=== PATIENT | male | born 1940 | race Caucasian/White ===

== ENCOUNTER 2019-05-29 15:40 | Inpatient (IN) | payer MEDICARE, OTHER ==
[~2019-05-29] VITALS: Ht 177.8 cm; Wt 115.3 kg
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
[2019-05-29 16:43] LABS: BILIRUBIN,URINE NEGATIVE (NEGATIVE); CLARITY,URINE CLEAR; COLOR,URINE YELLOW; GLUCOSE, URINE (UA) NEGATIVE (NEGATIVE); KETONES,URINE NEGATIVE (NEGATIVE); LEUKOCYTE ESTERASE ,URINE NEGATIVE (NEGATIVE); NITRITE,URINE NEGATIVE (NEGATIVE); PROTEIN,URINE NEGATIVE (NEGATIVE); RBC,URINE 0-2 /HPF; UROBILINOGEN,URINE 0.2 MG/DL (NORMAL)
[2019-05-29 16:44] LABS: BACTERIA,URINE NEGATIVE /HPF
--- NOTE | 2019-05-29 16:52 | Diagnostic Imaging Report ---
INDICATION: Multiple falls, swelling of the lower extremities. COMPARISON: None available. TECHNIQUE: Single view of the chest was obtained. FINDINGS: Asymmetric elevation of the right hemidiaphragm is present. Patchy ill-defined opacities are present in the right lung base. No pleural effusion or pneumothorax. The heart is enlarged. Left pectoral transvenous pacemaker has electrodes and leads in appropriate position. The pulse generator is unremarkable. No displaced rib fracture. IMPRESSION: 1. Right basilar linear opacities favor subsegmental atelectasis. In the appropriate setting, aspiration or infection could be present. 2. No features of congestive heart failure. Dictated by: Dictated on workstation # [id number]
[2019-05-29 17:05] LABS: HEMATOCRIT 40 % (35-52); HEMOGLOBIN 12.8 G/DL (11.5-16.0); MEAN CORPUSCULAR HEMOGLOBIN 28 PG (25-34); MEAN CORPUSCULAR HGB CONC 32 G/DL (32-36); MEAN CORPUSCULAR VOLUME 88 FL (80-99); MEAN PLATELET VOLUME 8.9 FL (7.4-10.4); PLATELET COUNT 338 10^3/uL (130-400); WHITE BLOOD COUNT 7.6 10^3/uL (4.3-11.0)
[2019-05-29 17:06] LABS: BASOPHILS # (AUTO) 0.1 10^3/uL (0.0-0.1); BASOPHILS % (AUTO) 1 % (0-10); EOSINOPHILS # (AUTO) 0.3 10^3/uL (0.0-0.3); EOSINOPHILS % (AUTO) 4 % (0-10); LYMPHOCYTES % (AUTO) 14 % (12-44); MONOCYTES # (AUTO) 0.7 X 10^3 (0.0-1.0); MONOCYTES % (AUTO) 9 % (0-12); NEUTROPHILS # (AUTO) 5.5 X 10^3 (1.8-7.8); NEUTROPHILS % (AUTO) 72 % (42-75); RED CELL DISTRIBUTION WIDTH 13.6 % (10.0-14.5)
[2019-05-29 17:31] LABS: BUN/CREATININE RATIO 11; CALCIUM 8.9 MG/DL (8.5-10.1); CARBON DIOXIDE 25 MMOL/L (21-32); CHLORIDE 99 MMOL/L (98-107); CREATININE SERUM 0.99 MG/DL (0.60-1.30); GFR ESTIMATED 54; GLUCOSE 91 MG/DL (70-105); POTASSIUM 3.9 MMOL/L (3.6-5.0); SODIUM 138 MMOL/L (135-145)
[2019-05-29] MEDS ORDERED: ALPRAZolam 0.5 MG (XANAX) TAB PO ONE (17:45)
[2019-05-29] MEDS ORDERED: cefTRIAXone FOR IV USE 1,000 MG in WATER (STERILE) FOR INJECTION 10 ML IV ONE (19:15)
[2019-05-29] MEDS ORDERED: FUROSEMIDE 40 MG/4 ML INJ (LASIX) IVP ONE (19:15)
--- NOTE | 2019-05-29 19:20 | NUR ---
ems here report given
[2019-05-29 20:25] VITALS: BP 163/76
[2019-05-30 00:30] VITALS: BP 176/79
[2019-05-30 04:00] VITALS: BP 175/81
[2019-05-30 06:20] LABS: BASOPHILS % (AUTO) 1 % (0-10); EOSINOPHILS # (AUTO) 0.3 10^3/uL (0.0-0.3); EOSINOPHILS % (AUTO) 5 % (0-10); HEMATOCRIT 38 % (35-52); HEMOGLOBIN 11.9 G/DL (11.5-16.0); LYMPHOCYTES # (AUTO) 0.9 X 10^3 (1.0-4.0); LYMPHOCYTES % (AUTO) 14 % (12-44); MEAN CORPUSCULAR HEMOGLOBIN 27 PG (25-34); MEAN CORPUSCULAR HGB CONC 31 G/DL (32-36); MEAN CORPUSCULAR VOLUME 87 FL (80-99); MEAN PLATELET VOLUME 9.6 FL (7.4-10.4); MONOCYTES # (AUTO) 0.8 X 10^3 (0.0-1.0); MONOCYTES % (AUTO) 13 % (0-12); NEUTROPHILS # (AUTO) 4.6 X 10^3 (1.8-7.8); NEUTROPHILS % (AUTO) 69 % (42-75); PLATELET COUNT 297 10^3/uL (130-400); RED CELL DISTRIBUTION WIDTH 14.2 % (10.0-14.5); WHITE BLOOD COUNT 6.7 10^3/uL (4.3-11.0)
[2019-05-30 06:40] LABS: ALBUMIN 3.2 GM/DL (3.2-4.5); BILIRUBIN,TOTAL 0.4 MG/DL (0.1-1.0); CALCIUM 8.9 MG/DL (8.5-10.1); CREATININE SERUM 0.96 MG/DL (0.60-1.30); POTASSIUM 4.1 MMOL/L (3.6-5.0); TOTAL PROTEIN 6.5 GM/DL (6.4-8.2)
[2019-05-30 08:00] VITALS: BP 193/94
[2019-05-30] MEDS: FUROSEMIDE 40 MG/4 ML INJ (LASIX) IV SCH ×2 (11:02→19:42)
[2019-05-30 12:00] VITALS: BP 202/98
[2019-05-30] MEDS ORDERED: amLODIPine 5 MG (NORVASC) TAB PO NR (12:00)
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
[2019-05-30] MEDS ORDERED: ANTACID SUSP 30 ML UDC (MYLANTA) PO PRN (12:15)
[2019-05-30] MEDS ORDERED: MILK OF MAGNESIA 400 MG/5 ML 30 ML UDC PO PRN (12:15)
[2019-05-30] MEDS ORDERED: BENZONATATE 100 MG (TESSALON) CAPSULE PO PRN (12:15)
[2019-05-30] MEDS ORDERED: BISACODYL 10 MG SUPP (DULCOLAX) PR PRN (12:15)
[2019-05-30] MEDS ORDERED: ONDANSETRON 4 MG/2 ML (SDV) Z0FRAN IV PRN (12:15)
[2019-05-30] MEDS ORDERED: MELATONIN 3 MG TABLET PO PRN (12:15)
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
[2019-05-30] MEDS: ENOXAPARIN 40 MG/0.4 ML (LOVENOX) SYR SQ SCH (13:15)
--- NOTE | 2019-05-30 13:57 | Physical Therapy Evaluation ---
PT Evaluation-General Medical Diagnosis Admission Date May 29, 2019 at 19:00 Medical Diagnosis: Pain in bilateral LE Onset Date: May 29, 2019 Therapy Diagnosis Therapy Diagnosis: debility Height/Weight Height (Feet): 5 Height (Inches): 10.00 Weight (Pounds): 261 Weight (Ounces): 8.0 Precautions Precautions/Isolations: Fall Prevention, Standard Precautions Referral Physician: Dr. Krishna Reason for Referral: Evaluation/Treatment Medical History Additional Medical History (B) TKR Current History Deplorable home condition and falls Reviewed History: Yes Social History Home: Single Level Current Living Status: Alone Prior/Core FIM Prior Level of Function Therapy Code Descriptions/Definitions Functional [place] Measure: 0=Not Assessed/NA 4=Minimal Assistance 1=Total Assistance 5=Supervision or Setup 2=Maximal Assistance 6=Modified [place] 3=Moderate Assistance 7=Complete [place] Therapy Quality Codes: 6 Independent with activity with or without an assistive device 5 Patient requires set up or clean up by helper. Patient completes activity by themselves 4 Supervision or touching assist (CGA). [place] provide cues , steadying assist 3 The helper provides less than half the effort to complete the activity 2 The helper provides more than half the effort to complete the activity 1 Dependent. The helper does all the effort to complete an activity 7 Patient refused to complete or attempt activity 9 The patient did not perform the activity before the current illness or injury 88 Not attempted due to Medical conditions or safety concerns Functional Abilities and Goals: Independent: Patient completed the activities by him/herself, with or without an assistive device, with no assistance from a helper. Needed Some Help: Patient needed partial assistance from another person to complete activities. Dependent: A helper completed the activities for the patient. Unknown: Not Applicable: Bed Mobility: 6 Transfers (B,C,W/C) (FIM): 6 Gait: 6 Stairs: 6 Indoor Mobility (Ambulation): Independent Prior Devices Use: Walker PT Evaluation-Current Subjective Pt. in bed, says "I need to use my urinal!" Pt. agrees to PT after therapist encouragement. Pt/Family Goals home alone ROM/Strength ROM Upper Extremities See OT ROM Lower Extremities 75% normal ranges (B) hips, knees, ankles Strength Upper Extremities See OT Strength Lower Extremities Grossly 4-/5 Integumentary/Posture Integumentary See nursing notes Posture kyphotic Neuromuscular (Tone, Coordination, Reflexes) diminished Sensory Vision: Functional Hearing: Impaired Sensation Right Upper Extremit: Intact Sensation Left Upper Extremity: Intact Sensation Right Lower Extremit: Intact Sensation Left Lower Extremity: Intact Transfers Therapy Code Descriptions/Definitions Functional [place] Measure: 0=Not Assessed/NA 4=Minimal Assistance 1=Total Assistance 5=Supervision or Setup 2=Maximal Assistance 6=Modified [place] 3=Moderate Assistance 7=Complete [place] Transfers (B, C, W/C) (FIM): 3 Supine to/from Sit: 3 Sit to/from Stand: 4 Gait Mode of Locomotion: Walk Anticipated Mode of Locomotion: Walk Gait (FIM): 1 Distance (FIM): 1=up to 49 ft Distance: 15 ft Gait Level of Assist: 4 Gait Persons Needed: 1 Gait Assistive Device: FWW Comments/Gait Description cues needed to stay close to walker Balance Sitting Static: Good Sitting Dynamic: Fair Standing Static: Fair Standing Dynamic: Fair Assessment/Needs Pt. is a 79 y.o. male with general debility. Pt. is slow with transfers and gait, cues needed for safety. Pt. would benefit from skilled PT to improve safe mobility for return home. Rehab Potential: Fair PT Short Term Goals Short Term Goals Transfers (B,C,W/C) (FIM): 5 PT Soap Chipper Goals Halfway Goals PT Halfway Goals Time Frame: Jun 06, 2019 Transfers (B,C,W/C) (FIM): 5 Gait (FIM): 5 Gait distance (FIM): 3=150 ft Distance: 150 ft Gait Level of Assist: 5 Gait Assistive Device: FWW PT Plan Problem List Problem List: Activity Tolerance, Functional Strength, Safety, Balance, Gait, Transfer, Bed Mobility, ROM Treatment/Plan Treatment Plan: Continue Plan of Care Treatment Plan: Bed Mobility, Concurrent Therapy, Education, Functional Activity Yumiko, Functional Strength, Gait, Safety, Therapeutic Exercise, Transfers Treatment Duration: Jun 06, 2019 Frequency: 6 times per week Estimated Hrs Per Day: .5 hour per day Patient and/or Family Agrees t: Yes Time/GCodes Time In: 1020 Time Out: 1035 Total Billed Treatment Time: 15 Total Billed Treatment 1, BORIS 15' TIMOTHY VELÁZQUEZ PT May 30, 2019 13:57
[2019-05-30 16:50] VITALS: BP 116/72
[2019-05-30] MEDS: LACTOBACILLUS ACIDOPHILUS (PROBIOTIC) CAPSULE PO SCH (17:58)
[2019-05-30 20:30] VITALS: BP 139/71
[2019-05-31] VITALS (7 sets, daily range): BP systolic 157–202; BP diastolic 74–90
[2019-05-31] MEDS: NITROGLYCERIN 2% OINT 1 GM UNIT DOSE PACKET TOP PRN ×2 (01:12→16:53)
[2019-05-31 05:38] LABS: BASOPHILS % (AUTO) 1 % (0-10); EOSINOPHILS # (AUTO) 0.4 10^3/uL (0.0-0.3); EOSINOPHILS % (AUTO) 6 % (0-10); HEMATOCRIT 39 % (35-52); HEMOGLOBIN 12.4 G/DL (11.5-16.0); LYMPHOCYTES % (AUTO) 13 % (12-44); MEAN CORPUSCULAR HEMOGLOBIN 28 PG (25-34); MEAN CORPUSCULAR HGB CONC 32 G/DL (32-36); MEAN CORPUSCULAR VOLUME 87 FL (80-99); MEAN PLATELET VOLUME 9.1 FL (7.4-10.4); MONOCYTES # (AUTO) 0.9 X 10^3 (0.0-1.0); MONOCYTES % (AUTO) 12 % (0-12); NEUTROPHILS # (AUTO) 5.2 X 10^3 (1.8-7.8); NEUTROPHILS % (AUTO) 69 % (42-75); PLATELET COUNT 322 10^3/uL (130-400); RED CELL DISTRIBUTION WIDTH 14.2 % (10.0-14.5); WHITE BLOOD COUNT 7.5 10^3/uL (4.3-11.0)
[2019-05-31 06:00] LABS: CREATININE SERUM 1.03 MG/DL (0.60-1.30); POTASSIUM 3.7 MMOL/L (3.6-5.0)
[2019-05-31] MEDS: LACTOBACILLUS ACIDOPHILUS (PROBIOTIC) CAPSULE PO SCH ×3 (06:29→17:35)
[2019-05-31] MEDS: amLODIPine 5 MG (NORVASC) TAB PO SCH (09:06)
[2019-05-31] MEDS: FUROSEMIDE 40 MG/4 ML INJ (LASIX) IV SCH ×2 (09:06→20:51)
[2019-05-31] MEDS: A & D OINT 113 GM TUBE TOP SCH (09:09)
[2019-05-31] MEDS: ENOXAPARIN 40 MG/0.4 ML (LOVENOX) SYR SQ SCH (12:05)
--- NOTE | 2019-05-31 14:46 | Wound Care Assessment ---
Wound Care Assessment Date Seen by Provider: May 31, 2019 Time Seen by Provider: 14:30 Chief Complaint R calf ulcer. HPI The patient is a 79 year old male with venous insufficiency, R calf ulcer, and cellulitis. He is improved with elevation and antibiotics. Arterial evaluation ordered to determine if compression is safe. Dressings (A + D) ordered. Past Medical History: Admits Heart Disease (Hypertension) Smoking Status: Never a Smoker Recreational Drug Use: No Alcohol Use: Denies Use Review of Systems Pulmonary: No Dyspnea Cardiovascular: No: Chest Pain Exam Vital Signs Date Time Temp Pulse Resp B/P (MAP) Pulse Ox O2 Delivery O2 Flow Rate FiO2 05/31/19 12:00 98.0 63 18 179/90 (119) 95 Room Air Capillary Refill : Less Than 3 SecondsLess Than 3 Seconds General Appearance: no apparent distress Cardiovascular: regular rate, rhythm Respiratory: lungs clear Extremities: other (superficial ulceration of R calf) Results Laboratory Tests 05/31/19 05:28: White Blood Count 7.5, Red Blood Count 4.47, Hemoglobin 12.4, Hematocrit 39, Mean Corpuscular Volume 87, Mean Corpuscular Hemoglobin 28, Mean Corpuscular Hemoglobin Concent 32, Red Cell Distribution Width 14.2, Platelet Count 322, Mean Platelet Volume 9.1, Neutrophils (%) (Auto) 69, Lymphocytes (%) (Auto) 13, Monocytes (%) (Auto) 12, Eosinophils (%) (Auto) 6, Basophils (%) (Auto) 1, Neutrophils # (Auto) 5.2, Lymphocytes # (Auto) 1.0, Monocytes # (Auto) 0.9, Eosinophils # (Auto) 0.4H, Basophils # (Auto) 0.0, Sodium Level 136, Potassium Level 3.7, Chloride Level 101, Carbon Dioxide Level 25, Anion Gap 10, Blood Urea Nitrogen 14, Creatinine 1.03, Estimat Glomerular Filtration Rate 52, BUN/Creatinine Ratio 14, Glucose Level 101, Calcium Level 9.0 Assessment/Plan/Dx 1. Ulcer, R calf, partial thickness. 2. Venous insufficiency R leg. 3. Lymphedema Plan: Elevation ordered and encouraged. Arterial studies ordered. KIKI ANDREWS MD May 31, 2019 14:46
--- NOTE | 2019-05-31 15:57 | Progress Note - Hospitalist ---
Subjective HPI/CC On Admission Date Seen by Provider: May 31, 2019 Time Seen by Provider: 10:20 patient is a 79-year-old male with a past medical of hypertension who was brought to the emergency department due to weakness and falls. He is a poor historian so details of history are limited. He states that 2 weeks ago his left him and he has not been feeling well since then. He reports he has fallen twice since that time. He also has redness and swelling in his right leg that is worse than his left leg. He states this duration is also two weeks (though clinically appears like a much older issue). He otherwise has no complaints. per review of notes and from report from ER doctor he was found by the fire depart ment to be living in deplorable conditions His mattress was covered with urine and feces and reportedly there was maggot infestation in the house. Subjective/Events-last exam Pt reports feeling about the same. No complaints or concerns. Discussed with RN who spoke with his nieces who plan to be here tomorrow to discuss their uncle's situation with SW. Focused Exam Lactate Level 05/29/19 18:20: Lactic Acid Level 0.95 Objective Exam Vital Signs Vital Signs Date Time Temp Pulse Resp B/P (MAP) Pulse Ox O2 Delivery O2 Flow Rate FiO2 05/31/19 12:00 98.0 63 18 179/90 (119) 95 Room Air Capillary Refill : Less Than 3 SecondsLess Than 3 Seconds General Appearance: No Apparent Distress, WD/WN, Obese Neck: No Thyromegaly Respiratory: Lungs Clear, No Accessory Muscle Use, No Respiratory Distress Cardiovascular: Regular Rate, Rhythm, No JVD, No Murmur Gastrointestinal: Normal Bowel Sounds, Non Tender, Soft Back: Normal Inspection Extremity: Swelling, Other (RLE erythematous though improving with venous stasis dermatitis and flaking skin) Skin: Erythema, Other (bilateral venous statis dermatitsi R>L) Results/Procedures Lab Laboratory Tests 05/31/19 05:28 Patient resulted labs reviewed. Imaging: Reviewed Imaging Report Assessment/Plan Assessment and Plan Assess & Plan/Chief Complaint assessment Right lower extremity cellulitis Failure to thrive Hypertensive urgency elevated BNP plan: Will continue on Rocephin Await cultures echo pending new client banking services clerk consulted pt/ot IV lasix for diuresis Start amlodipine Diagnosis/Problems Diagnosis/Problems (1) Cellulitis of lower extremity Status: Acute Qualifiers: Laterality: right Qualified Codes: L03.115 - Cellulitis of right lower limb (2) Failure to thrive Status: Acute Qualifiers: Failure to thrive age range: in adult Qualified Codes: R62.7 - Adult failure to thrive (3) Lower extremity edema Status: Acute (4) Poor social situation Status: Acute (5) Venous stasis dermatitis Status: Acute Qualifiers: Laterality: bilateral Qualified Codes: I87.2 - Venous insufficiency (chronic) (peripheral) (6) Essential hypertension Status: Acute Clinical Quality Measures DVT/VTE Risk/Contraindication: Risk Factor Score Per Nursin RFS Level Per Nursing on Admit: 4+=Very High NAOMIE YOUSSEF MD May 31, 2019 15:57
[2019-05-31] MEDS: ACETAMINOPHEN 325 MG TABLET PO PRN (20:51)
[2019-06-01] VITALS: BP 171/78
[2019-06-01] MEDS ORDERED: cefTRIAXone 1,000 MG IV (ROCEPHIN) VIAL ONE (00:47)
[2019-06-01 04:00] VITALS: BP 175/90
[2019-06-01] MEDS: LACTOBACILLUS ACIDOPHILUS (PROBIOTIC) CAPSULE PO SCH ×3 (06:11→16:13)
[2019-06-01 08:00] VITALS: BP 156/81
[2019-06-01] MEDS: FUROSEMIDE 40 MG/4 ML INJ (LASIX) IV SCH ×2 (08:48→20:36)
[2019-06-01] MEDS: amLODIPine 5 MG (NORVASC) TAB PO SCH (08:48)
[2019-06-01] MEDS: A & D OINT 113 GM TUBE TOP SCH ×2 (08:53→10:22)
--- NOTE | 2019-06-01 09:12 | ST Cognitive Linguistic Eval ---
Speech Evaluation-General Medical Diagnosis Pain in bilateral LE Onset Date: May 29, 2019 Therapy Diagnosis Therapy Diagnosis: Cognitve-communication Precautions Precautions/Isolations: Contact Isolation, Fall Prevention, Standard Precautions, Contact/Enteric Isolation Medical History Reviewed History: Yes Social History Current Living Status: Alone Speech PLF-Current Status Prior Level of Function The patient lived alone and was independent for his daily needs. Subjective The patient was pleasant and cooperative with the cognitive evaluation. Language Eval: Auditory Comprehends Simple Yes/No Ques: Functional Indent/Objects Multiple [place]: Functional Ident/Pics in Multiple [place]: Functional Follows 1-Step Commands: Functional Follows Complex Directions: Functional Follows General Conversations: Functional Language Eval: Verbal Language Completes Spontaneous Greeting: Functional Produces Auto, Serial Info: Functional Imitates Simple Words/Phrases: Functional Word Finding: Functional Requests Basic Needs: Functional States Basic Personal Info: Functional Expresses Complex Ideas: Functional Objective Cognitive Domain Attention: WNL Memory: WNL Problem Solving: Functional Executive Functions: WNL Visuospatial Skills: WNL Composite Severity Rating: WNL Clock Drawing Severity Rating: WNL Objective Formal/Standardized Tests [facility] Mental Status (UMS) Results Patient scored 28/30 which is within the normal range. Oral Motor/Speech Production Within Normal Function Impression The patient is a pleasant 79 year old man who was brought to the ER with a bilateral LE. His medical status has improved. Confusion is not apparent as it was upon admit. SLUMS score is 28/30 which is within normal range. Patient does not require any skilled ST at this time. Speech-Plan Patient/Family Goals Patient/Family Goals: The patient plans on returning home upon hospital discharge. Treatment Plan Speech Therapy Treatment Plan: Discontinue ST The patient does not meet criteria for skilled ST services. Treatment Duration: Jun 01, 2019 Frequency: 1 time per week Estimated Hrs Per Day: .25 hour per day Rehab Potential: Fair Barriers to Learning: None identified at this time. Pt/Family Agrees to Plan: Yes Safety Risks/Education Teaching Recipient: Patient Teaching Methods: Discussion Response to Teaching: Verbalize Understanding Education Topics Provided: Safety within his room. Time Speech Therapy Time In: 08:15 Speech Therapy Time Out: 08:30 Total Billed Time: 15 Billed Treatment Time 1, SHORTY Bello Jun 01, 2019 09:12
--- NOTE | 2019-06-01 09:31 | NUR ---
PATIENT STATES HE IS NOT CURRENTLY TAKING ANY MEDICATIONS PRESCRIPTION OR OTC. HE STATES HE HAS TAKEN ASPIRIN IN THE PAST BUT HASN'T TAKEN IT RECENTLY.
--- NOTE | 2019-06-01 10:24 | Diagnostic Imaging Report ---
PROCEDURE: US Venous Lower Ext Mark. TECHNIQUE: Multiple real-time grayscale images were obtained over the lower extremities in various projections, bilaterally. Additional duplex Doppler and color Doppler images were also obtained. INDICATION: Pain and swelling. FINDINGS: The common femoral, femoral, popliteal veins and tibial veins demonstrate normal response to compression, augmentation and Valsalva. There are no abnormal lower extremity fluid collections or masses. IMPRESSION: No evidence of deep venous thrombosis in either lower extremity. Dictated by: Dictated on workstation # [id number]
--- NOTE | 2019-06-01 10:34 | NUR ---
PRIOR TO A.M. MEDICATIONS PULSE WAS 64 BPM AND B/P WAS 156/81.
--- NOTE | 2019-06-01 11:46 | Diagnostic Imaging Report ---
Ultrasound noninvasive extremity. Indication: Leg pain. The segmental pressures and ankle brachial indices were obtained in the routine manner. There are no prior studies available for comparison. The ankle-brachial index on the right is 1.40 and on the left 1.46 (normal 1.00 or greater). Impression: The ankle brachial indices are within normal limits. Dictated by: Dictated on workstation # [id number]
[2019-06-01 12:00] VITALS: BP 185/85
--- NOTE | 2019-06-01 12:25 | NUR ---
Initial visit: Pt did not share specific chente affiliation. States that he has two sister with whom he lost touch until a week ago when they arrived at his home and insisted he go to the hospital. Pt reflected that this was a timely intervention and expressed gratitude for his sisters. The pt has a son with whom he does not have contact. States that two years ago his son "became a 'she,"' after which time they have not spoken. The pt said he was "not excited about his choice" but in the end was not going to let it get in the way of their relationship. Even so, they have remained estranged since that time. The pt is from [facility] and expressed desire to return there, but is not making plans to do so. Presently he lives in [place].
[2019-06-01] MEDS: ENOXAPARIN 40 MG/0.4 ML (LOVENOX) SYR SQ SCH (13:00)
--- NOTE | 2019-06-01 13:12 | Physical Therapy Daily Note ---
PT Daily Note-Current Subjective Pt agreeable only to ex's this morning. States he had a conversation with dish cloth inspector earlier this morning. Pain Numeric Pain Scale: 0-No Pain Appearance Pt sitting up in chair upon arrival awake. Pt sitting up in chair with call light and bedside table within reach at end of session. Mental Status Patient Orientation: Person, Time, Eyes Open Transfers Therapy Code Descriptions/Definitions Functional [place] Measure: 0=Not Assessed/NA 4=Minimal Assistance 1=Total Assistance 5=Supervision or Setup 2=Maximal Assistance 6=Modified [place] 3=Moderate Assistance 7=Complete [place] Therapy Quality Codes: 6 Independent with activity with or without an assistive device 5 Patient requires set up or clean up by helper. Patient completes activity by themselves 4 Supervision or touching assist (CGA). [place] provide cues , steadying assist 3 The helper provides less than half the effort to complete the activity 2 The helper provides more than half the effort to complete the activity 1 Dependent. The helper does all the effort to complete an activity 7 Patient refused to complete or attempt activity 9 The patient did not perform the activity before the current illness or injury 88 Not attempted due to Medical conditions or safety concerns Exercises Seated Therapy Exercises: Ankle pumps, Long arc quads, Hip flexion, Hamstring Curls, Reaching activity, Hip abd/add Seated Reps: 20 Assessment pt only willing to perform seated ex's this am PT Short Term Goals Short Term Goals Transfers (B,C,W/C) (FIM): 5 PT Before School Babysitter Goals Before School Babysitter Goals PT Fci Goals Time Frame: Jun 06, 2019 Transfers (B,C,W/C) (FIM): 5 Gait (FIM): 5 Gait distance (FIM): 3=150 ft Distance: 150 ft Gait Level of Assist: 5 Gait Assistive Device: FWW PT Plan Treatment/Plan Treatment Plan: Continue Plan of Care Treatment Plan: Bed Mobility, Concurrent Therapy, Education, Functional Activity Yumiko, Functional Strength, Gait, Safety, Therapeutic Exercise, Transfers Treatment Duration: Jun 06, 2019 Frequency: 6 times per week Estimated Hrs Per Day: .5 hour per day Patient and/or Family Agrees t: Yes Safety Risks/Education Patient Education: Disease Process, Safety Issues Teaching Recipient: Patient Teaching Methods: Discussion Response to Teaching: Verbalize Understanding Time/GCodes Time In: 1207 Time Out: 1220 Total Billed Treatment Time: 13 Total Billed Treatment 1 visit, EX x1 unit OLY,DONALDO DITCH TENDER Jun 01, 2019 13:12
--- NOTE | 2019-06-01 14:59 | Occupational Ther Daily Note ---
OT Current Status-Daily Note Subjective Pt seen in room, up in bed, agreeable to OT. No pain mentioned. Appearance Alert, cooperative Mental Status/Objective Therapy Code Descriptions/Definitions Functional [place] Measure: 0=Not Assessed/NA 4=Minimal Assistance 1=Total Assistance 5=Supervision or Setup 2=Maximal Assistance 6=Modified [place] 3=Moderate Assistance 7=Complete [place] Other Treatment Pt education on 5 different bilat UE exercises using yellow theraband. To strengthen arms to help with transfers and ADLs. Pt completed 10-12 reps each exercises, with occasional cues to do them correctly. Pt return demo three exercises. Pt encouraged to do another set this evening. Pt left up in bed, all needs met. Education OT Patient Education: Home exercise program, Purpose of tx/functional activiti es Teaching Recipient: Patient Teaching Methods: Demonstration, Discussion Response to Teaching: Verbalize Understanding, Return Demonstration, Reinforcement Needed OT Short Term Goals Short Term Goals Time Frame: Jun 06, 2019 Eating(FIM): 6 Grooming(FIM): 5 Bathing(FIM): 4 Upper Body Dressing(FIM): 5 Lower Body Dressing(FIM): 4 Toileting(FIM): 4 Transfers (B,C,W/C) (FIM): 5 Toilet/Commode Transfer(FIM): 5 Shower Transfer(FIM): 4 Additional Short Term Goals: 1-Demonstrate ADL Tasks, 2-Verbalize Understanding, 3-ImproveStrength/Yumiko 1=Demonstrate adherence to instructed precautions during ADL tasks. 2=Patient will verbalize/demonstrate understanding of assistive devices/modifications for ADL. 3=Patient will improve strength/tolerance for activity to enable patient to perform ADL's. OT [place] Goals Detention Goals Time Frame: Jun 13, 2019 Eating (FIM): 6 Grooming(FIM): 5 Bathing(FIM): 5 Upper Body Dressing(FIM): 5 Lower Body Dressing(FIM): 5 Toileting(FIM): 5 Transfers (B,C,W/C) (FIM): 5 Toilet/Commode Transfer(FIM): 5 Shower Transfer(FIM): 5 Additional Goals: 1-Demonstrate ADL Tasks, 2-Verbalize Understanding, 3- ImproveStrength/Yumiko 1=Demonstrate adherence to instructed precautions during ADL tasks. 2=Patient will verbalize/demonstrate understanding of assistive devices/modifications for ADL. 3=Patient will improve strength/tolerance for activity to enable patient to perform ADL's. OT Education/Plan Discharge Recommendations Plan/Recommendations: Continue POC Treatment Plan/Plan of Care Patient would benefit from OT for education, treatment and training to promote independence in ADL's, mobility, safety and/or upper extremity function for ADL's. Plan of Care: ADL Retraining, Functional Mobility, UE Funct Exercise/Act Treatment Duration: Jun 13, 2019 Frequency: 5 times per week Estimated Hrs Per Day: .5 hour per day Agreement: Yes Rehab Potential: Fair Time/GCodes Start Time: 14:35 Stop Time: 14:50 Total Time Billed (hr/min): 15 Billed Treatment Time visit, 15 minutes exercise FREDERICK ESCALANTE OT Jun 01, 2019 14:59
--- NOTE | 2019-06-01 15:16 | NUR ---
CM/SS responded to consult for SS. Spoke with the niece (Carey) and she stated that she and another family member cleaned up / out the patient's home as there had been trash and feces in the home. She stated that she also worked to get his phone bill caught up and back on. She and the patient have not spoken in the last ten years or so until this past weekend. Patient reports that he had a couple of falls recently and that he had not felt as strong. He would be interested in building up some strength before returning home, possible IRF or SNF. He wanted to discuss how his and son had recently left him, within the last two months. His son is transitioning to a female, he says he was always supportive but he has not heard from his son since he moved and he does not know how to get a hold of him. His left and he believes she is him, though, he states he has not seen the paperwork. Will continue to follow.
--- NOTE | 2019-06-01 15:36 | Progress Note - Hospitalist ---
Progress Note Progress Notes/Assess & Plan Date Seen 06/01/19 Time Seen by Provider: 15:32 Assessment & Plan The patient is a 79-year-old white male sent down from the [facility] emergency room after he was brought there because of inability to perform the activities of daily living. His home was said to be in a horrible state with urine, feces, maggots being noted in the E MS reports He seems to have no real retail pharmacy manager as to why he is here. This is likely to be a social work challenge. Physical exam: Lungs are clear to auscultation. CV is regular. Lower extremities show a rather considerable erythema and crusting of the right lower extremity. There are several areas that are open and oozing. Impression: Venous stasis/cellulitis right lower extremity. 2.dementia. 3.inability to perform the activities of daily living. Focused Exam Lactate Level 05/29/19 18:20: Lactic Acid Level 0.95 SANDY SALDANA MD Jun 01, 2019 15:36
[2019-06-01] MEDS ORDERED: VANCOMYCIN INJECTION 1,000 MG in NS (IVPB) 250 ML IV SCH (15:45)
[2019-06-01] MEDS ORDERED: VANCOMYCIN INJECTION 0.1 MG in NS (IVPB) 250 ML IV SCH (15:45)
[2019-06-01] MEDS ORDERED: VANCOMYCIN 2,500 MG/NS 500 ML IVPB IV NR ×2 (15:53)
--- NOTE | 2019-06-01 16:03 | NUR ---
VANCOMYCIN PHARMACY TO DOSE: BASED ON ADJ BW 86.6 KG, SCr 1.03, EST CrCl 73.57 LOADING DOSE (BASED ON ACTUAL BW 113.8 KG) = 2,500 MG MAIN DOSE = 1,750 MG Q 12 HRS VANCOMYCIN TROUGH DUE 06/03/19 @ 04:00 IF TROUGH IS GREATER THAN 20 HOLD 06/03/19 05:00 DOSE.
[2019-06-01] MEDS: ceFAZolin INJECTION 1,000 MG in WATER (STERILE) FOR INJECTION 10 ML IV SCH (16:13)
[2019-06-01 16:50] VITALS: BP 157/74
[2019-06-01] MEDS: ACETAMINOPHEN 325 MG TABLET PO PRN (20:29)
[2019-06-01 20:50] VITALS: BP 146/83
[2019-06-02 00:32] VITALS: BP 146/83
[2019-06-02] MEDS: ceFAZolin INJECTION 1,000 MG in WATER (STERILE) FOR INJECTION 10 ML IV SCH ×3 (00:41→15:48)
[2019-06-02 04:00] VITALS: BP 180/89
[2019-06-02] MEDS: LACTOBACILLUS ACIDOPHILUS (PROBIOTIC) CAPSULE PO SCH ×3 (06:17→16:46)
[2019-06-02] MEDS: VANCOMYCIN 1,750 MG/NS 500 ML IVPB IV SCH ×4 (06:18→16:47)
[2019-06-02 08:00] VITALS: BP 149/74
[2019-06-02] MEDS: amLODIPine 5 MG (NORVASC) TAB PO SCH (08:24)
[2019-06-02] MEDS: FUROSEMIDE 40 MG/4 ML INJ (LASIX) IV SCH ×2 (08:25→21:15)
[2019-06-02] MEDS: A & D OINT 113 GM TUBE TOP SCH (08:25)
--- NOTE | 2019-06-02 10:18 | Physical Therapy Daily Note ---
PT Daily Note-Current Subjective Agrees to PT and wants to get up to the chair. Repeats questions some. Mental Status Patient Orientation: Person, Confused (slight; repeats questions), Place, Time, Situation Transfers Therapy Code Descriptions/Definitions Functional [place] Measure: 0=Not Assessed/NA 4=Minimal Assistance 1=Total Assistance 5=Supervision or Setup 2=Maximal Assistance 6=Modified [place] 3=Moderate Assistance 7=Complete [place] Therapy Quality Codes: 6 Independent with activity with or without an assistive device 5 Patient requires set up or clean up by helper. Patient completes activity by themselves 4 Supervision or touching assist (CGA). [place] provide cues , steadying assist 3 The helper provides less than half the effort to complete the activity 2 The helper provides more than half the effort to complete the activity 1 Dependent. The helper does all the effort to complete an activity 7 Patient refused to complete or attempt activity 9 The patient did not perform the activity before the current illness or injury 88 Not attempted due to Medical conditions or safety concerns Transfers (B, C, W/C) (FIM): 3 Supine to/from Sit: 3 (mod assist to transfer supine to sit with skilled cues 75% of the time for sequencing) Sit to/from Stand: 3 (mod assist withskilled cues forhand placement and sequencing. blocked left foot to keep it from sliding. ) Gait Training Gait (FIM): 2 Distance (FIM): 1=up to 49 ft Distance: 10 ft Gait Assistive Device: FWW Pt walked 10 ft with FWW slow, decreased step length and decreased step through left LE. Slightly unsteady. AFter walking, pt stood to urinate. Needed assist to hold the urinal. Treatments Bed mobiltiy, gait and up in chair post treatment with needs met. Assessment Current Status: Good Progress Progressing with mobility. Requires heavy cues for sequencing and to complete tasks. Slightly unsteady with gait. Limited knee flexion ROM left due to hx of multiple surgerie.s PT Short Term Goals Short Term Goals Transfers (B,C,W/C) (FIM): 5 PT Director Process Goals Director Process Goals PT Director Process Goals Time Frame: Jun 06, 2019 Transfers (B,C,W/C) (FIM): 5 Gait (FIM): 5 Gait distance (FIM): 3=150 ft Distance: 150 ft Gait Level of Assist: 5 Gait Assistive Device: FWW PT Plan Problem List Problem List: Activity Tolerance, Functional Strength, Safety, Balance, Gait, Transfer, Bed Mobility Treatment/Plan Treatment Plan: Continue Plan of Care Treatment Plan: Bed Mobility, Concurrent Therapy, Education, Functional Activity Yumiko, Functional Strength, Gait, Safety, Therapeutic Exercise, Transfers Treatment Duration: Jun 06, 2019 Frequency: 6 times per week Estimated Hrs Per Day: .5 hour per day Patient and/or Family Agrees t: Yes Safety Risks/Education Patient Education: Transfer Techniques, Safety Issues Teaching Recipient: Patient Teaching Methods: Demonstration, Discussion Response to Teaching: Reinforcement Needed Time/GCodes Time In: 952 Time Out: 1010 Total Billed Treatment Time: 18 Total Billed Treatment visit FA 18 JACEK BROWN PT Jun 02, 2019 10:18
[2019-06-02] MEDS: ENOXAPARIN 40 MG/0.4 ML (LOVENOX) SYR SQ SCH (12:17)
--- NOTE | 2019-06-02 12:49 | Occupational Ther Daily Note ---
OT Current Status-Daily Note Subjective Pt sitting in chair, agrees to treatment. Mental Status/Objective Therapy Code Descriptions/Definitions Functional [place] Measure: 0=Not Assessed/NA 4=Minimal Assistance 1=Total Assistance 5=Supervision or Setup 2=Maximal Assistance 6=Modified [place] 3=Moderate Assistance 7=Complete [place] Other Treatment Pt completed bilateral UE exercises to increase overall strength and activity tolerance needed for functional task completion. Pt performed 5 exercises x10 reps each focusing on shoulder and elbow movements using yellow theraband. Rest breaks between exercises. Pt able to recall three exercises from previous session, but required cues for proper exercise technique. Pt performed sit to stand x3 reps with moderate assistance and skilled cues for hand placement and safety. Pt able to take steps forward and back with walker, but requires cues for safe walker use. Pt sitting in chair with needs met after session. OT Short Term Goals Short Term Goals Time Frame: Jun 06, 2019 Eating(FIM): 6 Grooming(FIM): 5 Bathing(FIM): 4 Upper Body Dressing(FIM): 5 Lower Body Dressing(FIM): 4 Toileting(FIM): 4 Transfers (B,C,W/C) (FIM): 5 Toilet/Commode Transfer(FIM): 5 Shower Transfer(FIM): 4 Additional Short Term Goals: 1-Demonstrate ADL Tasks, 2-Verbalize Understanding, 3-ImproveStrength/Yumiko 1=Demonstrate adherence to instructed precautions during ADL tasks. 2=Patient will verbalize/demonstrate understanding of assistive devices/modifications for ADL. 3=Patient will improve strength/tolerance for activity to enable patient to perform ADL's. OT Commercial Pest Control Representative Goals Long-Term Goals Time Frame: Jun 13, 2019 Eating (FIM): 6 Grooming(FIM): 5 Bathing(FIM): 5 Upper Body Dressing(FIM): 5 Lower Body Dressing(FIM): 5 Toileting(FIM): 5 Transfers (B,C,W/C) (FIM): 5 Toilet/Commode Transfer(FIM): 5 Shower Transfer(FIM): 5 Additional Goals: 1-Demonstrate ADL Tasks, 2-Verbalize Understanding, 3- ImproveStrength/Yumiko 1=Demonstrate adherence to instructed precautions during ADL tasks. 2=Patient will verbalize/demonstrate understanding of assistive devices/modifications for ADL. 3=Patient will improve strength/tolerance for activity to enable patient to perform ADL's. OT Education/Plan Discharge Recommendations Plan/Recommendations: Continue POC Treatment Plan/Plan of Care Patient would benefit from OT for education, treatment and training to promote independence in ADL's, mobility, safety and/or upper extremity function for ADL's. Plan of Care: ADL Retraining, Functional Mobility, UE Funct Exercise/Act Treatment Duration: Jun 13, 2019 Frequency: 5 times per week Estimated Hrs Per Day: .5 hour per day Agreement: Yes Rehab Potential: Fair Time/GCodes Start Time: 10:45 Stop Time: 11:10 Total Time Billed (hr/min): 25 Billed Treatment Time 1 visit, EX(15minutes), FA(10minutes) ALIYA ZAPATA OT Jun 02, 2019 12:49
--- NOTE | 2019-06-02 14:48 | Progress Note - Hospitalist ---
Progress Note Progress Notes/Assess & Plan Date Seen 06/02/19 Time Seen by Provider: 14:44 Assessment & Plan The patient seems more cognitive today than yesterday. The nurses have been in contact with his family in [place]. They state that they have close down his [facility] residence as he has no real connections there. 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 They would prefer that he be moved back to that area and believes at least in present time he requires penitentiary. He seems to be amenable to that idea. Physical exam: Lungs are clear to auscultation. CV is regular. Abdomen is soft. The right lower extremity looks remarkably better today as compared to yesterday. The red is fading and the skin appears less crusty than previously. Impression: Venous stasis dermatitis. 2.cellulitis secondary to number 1. Plan: Continue IV antibiotics. Make arrangements for discharge with approval of family. SANDY SALDANA MD Jun 02, 2019 14:47
[2019-06-02 16:00] VITALS: BP 149/73
[2019-06-03 00:05] VITALS: BP 167/71
[2019-06-03] MEDS: ceFAZolin INJECTION 1,000 MG in WATER (STERILE) FOR INJECTION 10 ML IV SCH ×3 (01:49→17:17)
[2019-06-03] MEDS ORDERED: TROUGH ORDER-PHARMACY XX NR ×2 (04:00→16:00)
[2019-06-03] MEDS: VANCOMYCIN 1,750 MG/NS 500 ML IVPB IV SCH ×4 (05:00→19:00)
[2019-06-03] MEDS: LACTOBACILLUS ACIDOPHILUS (PROBIOTIC) CAPSULE PO SCH ×3 (06:55→17:17)
[2019-06-03 08:00] VITALS: BP 187/64
[2019-06-03] MEDS: amLODIPine 5 MG (NORVASC) TAB PO SCH (08:32)
[2019-06-03] MEDS: FUROSEMIDE 40 MG/4 ML INJ (LASIX) IV SCH ×2 (08:32→19:55)
[2019-06-03] MEDS: A & D OINT 113 GM TUBE TOP SCH (08:32)
--- NOTE | 2019-06-03 09:18 | NUR ---
CM/SS spoke with the patient and then both of his nieces by phone. Alejandrina stated that she had other family not doing well and was going to be going to [place]. Carey stated that she was available but had other commitments this week. Patient spoke of [facility] and that he had therapy somewhere there, nirodrick stated this was an outpatient therapy. They agreed on referral to [facility] and then they would maybe try to transfer to a facility closer to them at a later time. Referral sent to [facility].
--- NOTE | 2019-06-03 09:32 | Progress Note - Hospitalist ---
Subjective HPI/CC On Admission Date Seen by Provider: Jun 03, 2019 Time Seen by Provider: 09:30 patient is a 79-year-old male with a past medical of hypertension who was brought to the emergency department due to weakness and falls. He is a poor historian so details of history are limited. He states that 2 weeks ago his left him and he has not been feeling well since then. He reports he has fallen twice since that time. He also has redness and swelling in his right leg that is worse than his left leg. He states this duration is also two weeks (though clinically appears like a much older issue). He otherwise has no complaints. per review of notes and from report from ER doctor he was found by the fire depart ment to be living in deplorable conditions His mattress was covered with urine and feces and reportedly there was maggot infestation in the house. Subjective/Events-last exam Pt awaiting approval for residential placement Pt has very poor recall Overall doing much better with his leg cellulitis and he is maintained on IV antibiotics but that will be switched to PO antibiotics Patient was found in terrible conditions at home with maggots and oscarsalud De [place] is managing as his power of babbitt spinner Review of Systems General: Fatigue Musculoskeletal: leg pain Objective Exam Vital Signs Vital Signs Date Time Temp Pulse Resp B/P (MAP) Pulse Ox O2 Delivery O2 Flow Rate FiO2 06/03/19 16:25 98.1 69 20 143/66 (91) 96 Room Air Capillary Refill : Less Than 3 SecondsLess Than 3 Seconds General Appearance: No Apparent Distress, WD/WN, Chronically ill, Obese Neck: No Thyromegaly Respiratory: Lungs Clear, Normal Breath Sounds, No Accessory Muscle Use, No Respiratory Distress Cardiovascular: Regular Rate, Rhythm, No JVD, No Murmur Gastrointestinal: Normal Bowel Sounds, Non Tender, Soft Back: Normal Inspection Extremity: Swelling, Other (RLE erythematous though improving with venous stasis dermatitis and flaking skin) Skin: Erythema, Other (bilateral venous statis dermatitsi R>L) Results/Procedures Lab Laboratory Tests 06/03/19 16:03 Patient resulted labs reviewed. Imaging: Reviewed Imaging Report Assessment/Plan Assessment and Plan Assess & Plan/Chief Complaint Assessment: Right lower extremity cellulitis Failure to thrive Hypertensive urgency Elevated BNP Poor recall Plan: Abx NHP Poor prognosis Diagnosis/Problems Diagnosis/Problems (1) Cellulitis of lower extremity Status: Acute Qualifiers: Laterality: right Qualified Codes: L03.115 - Cellulitis of right lower limb (2) Venous stasis dermatitis Status: Chronic Qualifiers: Laterality: bilateral Qualified Codes: I87.2 - Venous insufficiency (chronic) (peripheral) (3) Failure to thrive Status: Acute Qualifiers: Failure to thrive age range: in adult Qualified Codes: R62.7 - Adult failure to thrive (4) Congestive heart failure Status: Acute Qualifiers: Heart failure type: unspecified Heart failure chronicity: unspecified Qualified Codes: I50.9 - Heart failure, unspecified (5) Lower extremity edema Status: Chronic (6) Poor social situation Status: Acute (7) Decubitus ulcer of buttock, stage 1 Status: Acute Qualifiers: Laterality: unspecified laterality Qualified Codes: L89.301 - Pressure ulcer of unspecified buttock, stage 1 (8) Generalized weakness Status: Acute (9) Essential hypertension Status: Chronic Clinical Quality Measures DVT/VTE Risk/Contraindication: Risk Factor Score Per Nursin RFS Level Per Nursing on Admit: 4+=Very High IONA GANNON DO Jun 03, 2019 09:32
[2019-06-03] MEDS ORDERED: AMOX-358 PO (11:10)
[2019-06-03] MEDS ORDERED: POTA10TA36 PO (11:10)
[2019-06-03] MEDS ORDERED: FURO-125 PO (11:10)
[2019-06-03] MEDS ORDERED: AMLO5TAB9 PO (11:10)
[2019-06-03] MEDS ORDERED: LACT1CAP7 PO (11:10)
--- NOTE | 2019-06-03 11:13 | Discharge Inst-Skilled Nursing ---
Discharge Inst-Skilled NF Patient Instructions Patient Problems: Cellulitis Edema Venous stasis dermatitis Goal: Return to independent living Consult/Follow Up/Orders Follow Up Appt.: [facility] in 1 week Skilled NF Admit to: [facility] [place] Certification (SNF) I certify that SNF services are required to be given on an inpatient basis because of the above named patient's need for care home care on a continuing basis for the conditions(s) for which he/she was receiving inpatient hospital services prior to his/her transfer to the SNF. Alf Facility Order: Nursing Services, Landscape Horticulture Instructor-Evaluate & Treat, Physical Therapy-Evaluate & Treat Oxygen Delivery Method: Room Air Discharge Diet: Low Sodium Diet Daily Activity as Tolerated: Yes New & Resume Previous Orders Adrianna Valles Jun 03, 2019 11:11 Pneu Vac Indicated: Yes ADRIANNA VALLES DO Jun 03, 2019 11:13
[2019-06-03] MEDS: ENOXAPARIN 40 MG/0.4 ML (LOVENOX) SYR SQ SCH (12:50)
--- NOTE | 2019-06-03 12:54 | Occupational Ther Daily Note ---
OT Current Status-Daily Note Subjective Pt sitting in chair, agrees to treatment. No reports of pain. Pt states he wants to leave soon Mental Status/Objective Therapy Code Descriptions/Definitions Functional [place] Measure: 0=Not Assessed/NA 4=Minimal Assistance 1=Total Assistance 5=Supervision or Setup 2=Maximal Assistance 6=Modified [place] 3=Moderate Assistance 7=Complete [place] ADL-Treatment Pt reports already completing ADLs this morning. Therapy Code Descriptions/Definitions Functional [place] Measure: 0=Not Assessed/NA 4=Minimal Assistance 1=Total Assistance 5=Supervision or Setup 2=Maximal Assistance 6=Modified [place] 3=Moderate Assistance 7=Complete [place] Therapy Quality Codes: 6 Independent with activity with or without an assistive device 5 Patient requires set up or clean up by helper. Patient completes activity by themselves 4 Supervision or touching assist (CGA). [place] provide cues , steadying assist 3 The helper provides less than half the effort to complete the activity 2 The helper provides more than half the effort to complete the activity 1 Dependent. The helper does all the effort to complete an activity 7 Patient refused to complete or attempt activity 9 The patient did not perform the activity before the current illness or injury 88 Not attempted due to Medical conditions or safety concerns Other Treatment Pt states he wants to "get moving" so he can go home. Requests to work on mobility. Pt performed sit to stand from chair with moderate assistance and cues for safety. Initially pt leans posteriorly when standing and requires cues for weight shifting and foot placement. Pt transferred to EOB with min assist with FWW. Performed sit to stand x5 reps with min to mod assist with bed slightly raised. Ambulated short distance to chair with min assist. Pt performed modified chair push ups x5 reps, two sets to increase strength needed for transfers. Pt requires rest breaks between activities secondary to fatigue. Pt sitting in chair with needs met after session. OT Short Term Goals Short Term Goals Time Frame: Jun 06, 2019 Eating(FIM): 6 Grooming(FIM): 5 Bathing(FIM): 4 Upper Body Dressing(FIM): 5 Lower Body Dressing(FIM): 4 Toileting(FIM): 4 Transfers (B,C,W/C) (FIM): 5 Toilet/Commode Transfer(FIM): 5 Shower Transfer(FIM): 4 Additional Short Term Goals: 1-Demonstrate ADL Tasks, 2-Verbalize Understanding, 3-ImproveStrength/Yumiko 1=Demonstrate adherence to instructed precautions during ADL tasks. 2=Patient will verbalize/demonstrate understanding of assistive devices/modifications for ADL. 3=Patient will improve strength/tolerance for activity to enable patient to perform ADL's. OT Nanny Babysitter Goals Nanny Babysitter Goals Time Frame: Jun 13, 2019 Eating (FIM): 6 Groomin Bathing(FIM): 5 Upper Body Dressing(FIM): 5 Lower Body Dressing(FIM): 5 Toileting(FIM): 5 Transfers (B,C,W/C) (FIM): 5 Toilet/Commode Transfer(FIM): 5 Shower Transfer(FIM): 5 Additional Goals: 1-Demonstrate ADL Tasks, 2-Verbalize Understanding, 3- ImproveStrength/Yumiko 1=Demonstrate adherence to instructed precautions during ADL tasks. 2=Patient will verbalize/demonstrate understanding of assistive devices/modifications for ADL. 3=Patient will improve strength/tolerance for activity to enable patient to perform ADL's. OT Education/Plan Discharge Recommendations Plan/Recommendations: Continue POC Treatment Plan/Plan of Care Patient would benefit from OT for education, treatment and training to promote independence in ADL's, mobility, safety and/or upper extremity function for ADL's. Plan of Care: ADL Retraining, Functional Mobility, UE Funct Exercise/Act Treatment Duration: Jun 13, 2019 Frequency: 5 times per week Estimated Hrs Per Day: .5 hour per day Agreement: Yes Rehab Potential: Fair Time/GCodes Start Time: 10:24 Stop Time: 10:55 Total Time Billed (hr/min): 31 Billed Treatment Time 1 visit, FAx2(31minutes) ALIYA ZAPATA OT Jun 03, 2019 12:54
--- NOTE | 2019-06-03 13:54 | Physical Therapy Daily Note ---
PT Daily Note-Current Subjective Patient in recliner pre tx, agrees to PT, has no complaints of pain. Appearance Patient in recliner post tx with nurse call, phone, tray, all needs met. Mental Status Patient Orientation: Person Transfers Therapy Code Descriptions/Definitions Functional [place] Measure: 0=Not Assessed/NA 4=Minimal Assistance 1=Total Assistance 5=Supervision or Setup 2=Maximal Assistance 6=Modified [place] 3=Moderate Assistance 7=Complete [place] Therapy Quality Codes: 6 Independent with activity with or without an assistive device 5 Patient requires set up or clean up by helper. Patient completes activity by themselves 4 Supervision or touching assist (CGA). [place] provide cues , steadying assist 3 The helper provides less than half the effort to complete the activity 2 The helper provides more than half the effort to complete the activity 1 Dependent. The helper does all the effort to complete an activity 7 Patient refused to complete or attempt activity 9 The patient did not perform the activity before the current illness or injury 88 Not attempted due to Medical conditions or safety concerns Transfers (B, C, W/C) (FIM): 3 Sit to/from Stand: 3 Bed to/from Chair: 4 Mod assist for sit to stand, patient is very retropulsive initially and slowly leans forward to get his balance. Gait Training Gait (FIM): 1 Distance: 20' Gait Level of Assist: 4 Gait Persons Needed: 1 Gait Assistive Device: FWW Patient ambulated 20' with a rolling walker with min assist, unsteady but no yoko LOB, ambulates with a slumped posture with walker too far forward, he does not respond much to cues to keep walker closer. Treatments transfers, ambulation Assessment Current Status: Fair Progress improved endurance but patient was very fatigued after ambulating just 20' PT Short Term Goals Short Term Goals Transfers (B,C,W/C) (FIM): 5 PT Longterm Goals Longterm Goals PT Slide Fasteners Inspector Goals Time Frame: Jun 06, 2019 Transfers (B,C,W/C) (FIM): 5 Gait (FIM): 5 Gait distance (FIM): 3=150 ft Distance: 150 ft Gait Level of Assist: 5 Gait Assistive Device: FWW PT Plan Problem List Problem List: Activity Tolerance, Functional Strength, Safety, Balance, Gait, Transfer, Bed Mobility, ROM Treatment/Plan Treatment Plan: Continue Plan of Care Treatment Plan: Bed Mobility, Concurrent Therapy, Education, Functional Activity Yumiko, Functional Strength, Gait, Safety, Therapeutic Exercise, Transfers Treatment Duration: Jun 06, 2019 Frequency: 6 times per week Estimated Hrs Per Day: .5 hour per day Patient and/or Family Agrees t: Yes Safety Risks/Education Patient Education: Gait Training, Transfer Techniques, Correct Positioning, Safety Issues Teaching Recipient: Patient Teaching Methods: Demonstration, Discussion Response to Teaching: Reinforcement Needed Time/GCodes Time In: 1310 Time Out: 1325 Total Billed Treatment Time: 15 Total Billed Treatment 1 visit GT 15' DESTINY JOYCE PT Jun 03, 2019 13:54
--- NOTE | 2019-06-03 15:27 | NUR ---
CM/SS spoke with [facility], the patient actually has [employer], a managed medicare. Dorothy was able to find the card and provide them and our facility with the information. This information was passed along to registration. [facility] is not in network with the insurance. Dorothy (Carey) has began the process of a medicaid application for the patient and emailed a signature page to her with the patient's signature so that she could get that submitted.
[2019-06-03 16:25] VITALS: BP 143/66
[2019-06-03 16:29] LABS: CALCIUM 9.3 MG/DL (8.5-10.1); CREATININE SERUM 1.14 MG/DL (0.60-1.30); POTASSIUM 3.5 MMOL/L (3.6-5.0)
[2019-06-03 16:37] LABS: VANCOMYCIN,TROUGH 18.1 UG/ML (10.0-20.0)
[2019-06-04] VITALS: BP 159/77
[2019-06-04] MEDS: ceFAZolin INJECTION 1,000 MG in WATER (STERILE) FOR INJECTION 10 ML IV SCH ×3 (00:19→16:44)
[2019-06-04 06:33] LABS: BASOPHILS # (AUTO) 0.1 10^3/uL (0.0-0.1); BASOPHILS % (AUTO) 1 % (0-10); EOSINOPHILS # (AUTO) 0.6 10^3/uL (0.0-0.3); EOSINOPHILS % (AUTO) 6 % (0-10); HEMATOCRIT 40 % (35-52); HEMOGLOBIN 12.8 G/DL (11.5-16.0); LYMPHOCYTES # (AUTO) 1.2 X 10^3 (1.0-4.0); LYMPHOCYTES % (AUTO) 13 % (12-44); MEAN CORPUSCULAR HEMOGLOBIN 28 PG (25-34); MEAN CORPUSCULAR HGB CONC 32 G/DL (32-36); MEAN CORPUSCULAR VOLUME 86 FL (80-99); MEAN PLATELET VOLUME 9.2 FL (7.4-10.4); MONOCYTES # (AUTO) 0.9 X 10^3 (0.0-1.0); MONOCYTES % (AUTO) 10 % (0-12); NEUTROPHILS # (AUTO) 6.1 X 10^3 (1.8-7.8); NEUTROPHILS % (AUTO) 69 % (42-75); PLATELET COUNT 318 10^3/uL (130-400); RED CELL DISTRIBUTION WIDTH 14.5 % (10.0-14.5); WHITE BLOOD COUNT 8.8 10^3/uL (4.3-11.0)
[2019-06-04 06:54] LABS: ALANINE AMINOTRANSFERASE < 6 U/L (0-55); ALBUMIN 3.3 GM/DL (3.2-4.5); ALKALINE PHOSPHATASE 94 U/L (40-136); BILIRUBIN,TOTAL 0.3 MG/DL (0.1-1.0); BUN/CREATININE RATIO 19; CALCIUM 8.7 MG/DL (8.5-10.1); CARBON DIOXIDE 24 MMOL/L (21-32); CHLORIDE 101 MMOL/L (98-107); CREATININE SERUM 1.05 MG/DL (0.60-1.30); GFR ESTIMATED 51; GLUCOSE 97 MG/DL (70-105); POTASSIUM 3.3 MMOL/L (3.6-5.0); SODIUM 136 MMOL/L (135-145); TOTAL PROTEIN 6.9 GM/DL (6.4-8.2)
[2019-06-04 08:00] VITALS: BP 155/86
[2019-06-04] MEDS: LACTOBACILLUS ACIDOPHILUS (PROBIOTIC) CAPSULE PO SCH ×3 (08:40→16:43)
[2019-06-04] MEDS: amLODIPine 5 MG (NORVASC) TAB PO SCH (08:50)
[2019-06-04] MEDS: FUROSEMIDE 40 MG/4 ML INJ (LASIX) IV SCH ×2 (08:51→21:46)
--- NOTE | 2019-06-04 10:04 | Progress Note - Hospitalist ---
Subjective HPI/CC On Admission Date Seen by Provider: Jun 04, 2019 Time Seen by Provider: 10:15 patient is a 79-year-old male with a past medical of hypertension who was brought to the emergency department due to weakness and falls. He is a poor historian so details of history are limited. He states that 2 weeks ago his left him and he has not been feeling well since then. He reports he has fallen twice since that time. He also has redness and swelling in his right leg that is worse than his left leg. He states this duration is also two weeks (though clinically appears like a much older issue). He otherwise has no complaints. per review of notes and from report from ER doctor he was found by the fire depart ment to be living in deplorable conditions His mattress was covered with urine and feces and reportedly there was maggot infestation in the house. Subjective/Events-last exam Pt sleeping in chair, soundly. Awaiting placement in a custodial. Reviewed meds and labs. No significant issues persist. Objective Exam Vital Signs Vital Signs Date Time Temp Pulse Resp B/P (MAP) Pulse Ox O2 Delivery O2 Flow Rate FiO2 06/04/19 16:50 98.7 64 20 139/65 (89) 93 Room Air Capillary Refill : Less Than 3 SecondsLess Than 3 Seconds General Appearance: No Apparent Distress, WD/WN, Chronically ill, Obese Neck: No Thyromegaly Respiratory: Lungs Clear, Normal Breath Sounds, No Accessory Muscle Use, No Respiratory Distress Cardiovascular: Regular Rate, Rhythm, No JVD, No Murmur Gastrointestinal: Normal Bowel Sounds, Non Tender, Soft Back: Normal Inspection Extremity: Swelling, Other (RLE erythematous though improving with venous stasis dermatitis and flaking skin) Skin: Erythema, Other (bilateral venous statis dermatitsi R>L) Results/Procedures Lab Laboratory Tests 06/04/19 06:05 06/04/19 06:20 Patient resulted labs reviewed. Imaging: Reviewed Imaging Report Assessment/Plan Assessment and Plan Assess & Plan/Chief Complaint Assessment: Right lower extremity cellulitis Failure to thrive Hypertensive urgency Elevated BNP Poor recall Plan: Abx NHP Poor prognosis Diagnosis/Problems Diagnosis/Problems (1) Cellulitis of lower extremity Status: Acute Qualifiers: Laterality: right Qualified Codes: L03.115 - Cellulitis of right lower limb (2) Venous stasis dermatitis Status: Chronic Qualifiers: Laterality: bilateral Qualified Codes: I87.2 - Venous insufficiency (chronic) (peripheral) (3) Failure to thrive Status: Acute Qualifiers: Failure to thrive age range: in adult Qualified Codes: R62.7 - Adult failure to thrive (4) Congestive heart failure Status: Acute Qualifiers: Heart failure type: unspecified Heart failure chronicity: unspecified Qualified Codes: I50.9 - Heart failure, unspecified (5) Lower extremity edema Status: Chronic (6) Poor social situation Status: Acute (7) Decubitus ulcer of buttock, stage 1 Status: Acute Qualifiers: Laterality: unspecified laterality Qualified Codes: L89.301 - Pressure ulcer of unspecified buttock, stage 1 (8) Generalized weakness Status: Acute (9) Essential hypertension Status: Chronic Clinical Quality Measures DVT/VTE Risk/Contraindication: Risk Factor Score Per Nursin RFS Level Per Nursing on Admit: 4+=Very High IONA GANNON DO Jun 04, 2019 10:04
--- NOTE | 2019-06-04 10:41 | Physical Therapy Daily Note ---
PT Daily Note-Current Subjective Pt. in bed. Initially agrees to Rx but then hesitant as Rx begins. Pt. retropulsive and resists wt shifting etc and plops down on chair one time Pain Location: No Pain Reported Mental Status Patient Orientation: Person, Place Transfers Therapy Code Descriptions/Definitions Functional [place] Measure: 0=Not Assessed/NA 4=Minimal Assistance 1=Total Assistance 5=Supervision or Setup 2=Maximal Assistance 6=Modified [place] 3=Moderate Assistance 7=Complete [place] Therapy Quality Codes: 6 Independent with activity with or without an assistive device 5 Patient requires set up or clean up by helper. Patient completes activity by themselves 4 Supervision or touching assist (CGA). [place] provide cues , steadying a ssist 3 The helper provides less than half the effort to complete the activity 2 The helper provides more than half the effort to complete the activity 1 Dependent. The helper does all the effort to complete an activity 7 Patient refused to complete or attempt activity 9 The patient did not perform the activity before the current illness or injury 88 Not attempted due to Medical conditions or safety concerns Transfers (B, C, W/C) (FIM): 3 Scootin Rollin Supine to/from Sit: 4 Sit to/from Stand: 3 Gait Training Gait (FIM): 1 Distance (FIM): 1=up to 49 ft (25ftx2) Gait Level of Assist: 3 Gait Persons Needed: 1 Gait Assistive Device: FWW difficulty with wt shift Exercises Supine Ex: Ankle pumps, Quad Set, Rolling, Glut sets, Heel Slides (assist), Scooting, Straight leg raise (assist), Hip abd/add Supine Reps: 12 Seated Therapy Exercises: Ankle pumps, Sit to stand, Long arc quads Seated Reps: 5 Assessment Current Status: Fair Progress resists Rx and instructions PT Short Term Goals Short Term Goals Transfers (B,C,W/C) (FIM): 5 PT Halfway Goals Oracle Ebs Consultant Goals PT Halfway Goals Time Frame: Jun 06, 2019 Transfers (B,C,W/C) (FIM): 5 Gait (FIM): 5 Gait distance (FIM): 3=150 ft Distance: 150 ft Gait Level of Assist: 5 Gait Assistive Device: FWW PT Plan Treatment/Plan Treatment Plan: Continue Plan of Care Treatment Plan: Bed Mobility, Concurrent Therapy, Education, Functional Activity [place], Functional Strength, Gait, Safety, Therapeutic Exercise, Transfers Treatment Duration: Jun 06, 2019 Frequency: 6 times per week Estimated Hrs Per Day: .5 hour per day Patient and/or Family Agrees t: Yes Safety Risks/Education Patient Education: Gait Training, Transfer Techniques, Correct Positioning, Disease Process, Safety Issues Teaching Recipient: Patient Teaching Methods: Demonstration, Discussion Response to Teaching: Verbalize Understanding, Return Demonstration, Reinforcement Needed Time/GCodes Time In: 855 Time Out: 925 Total Billed Treatment Time: 30 Total Billed Treatment 1,EX13m,GT17m G Codes Necessary: LISA Perales CANVAS WORKER APPRENTICE Jun 04, 2019 10:41
[2019-06-04] MEDS: A & D OINT 113 GM TUBE TOP SCH (11:18)
--- NOTE | 2019-06-04 11:54 | Occupational Ther Daily Note ---
OT Current Status-Daily Note Subjective Pt alert, sitting in recliner. Pt agrees to therapy. No c/o pain at this time. Mental Status/Objective Patient Orientation: Person, Place, Time, Situation Therapy Code Descriptions/Definitions Functional [place] Measure: 0=Not Assessed/NA 4=Minimal Assistance 1=Total Assistance 5=Supervision or Setup 2=Maximal Assistance 6=Modified [place] 3=Moderate Assistance 7=Complete [place] Other Treatment Pt was able to remember 2 of 5 UE light resistance theraband exercises. Skilled instruction for correct technique and resistance modifications during exercises. Pt tolerated 1 set 10 reps of 5 exercises. After therapy, pt sitting in recliner with call light/phone in reach. All needs met in room. OT Short Term Goals Short Term Goals Time Frame: Jun 06, 2019 Eating(FIM): 6 Grooming(FIM): 5 Bathing(FIM): 4 Upper Body Dressing(FIM): 5 Lower Body Dressing(FIM): 4 Toileting(FIM): 4 Transfers (B,C,W/C) (FIM): 5 Toilet/Commode Transfer(FIM): 5 Shower Transfer(FIM): 4 Additional Short Term Goals: 1-Demonstrate ADL Tasks, 2-Verbalize Understandi ng, 3-ImproveStrength/[place] 1=Demonstrate adherence to instructed precautions during ADL tasks. 2=Patient will verbalize/demonstrate understanding of assistive devices/modifications for ADL. 3=Patient will improve strength/tolerance for activity to enable patient to perform ADL's. OT Bookbinder Apprentice Goals Care Home Goals Time Frame: Jun 13, 2019 Eating (FIM): 6 Grooming(FIM): 5 Bathing(FIM): 5 Upper Body Dressing(FIM): 5 Lower Body Dressing(FIM): 5 Toileting(FIM): 5 Transfers (B,C,W/C) (FIM): 5 Toilet/Commode Transfer(FIM): 5 Shower Transfer(FIM): 5 Additional Goals: 1-Demonstrate ADL Tasks, 2-Verbalize Understanding, 3-ImproveStrength/[place] 1=Demonstrate adherence to instructed precautions during ADL tasks. 2=Patient will verbalize/demonstrate understanding of assistive devices/modifications for ADL. 3=Patient will improve strength/tolerance for activity to enable patient to perf orm ADL's. OT Education/Plan Problem List/Assessment Assessment: Decreased Activ Tolerance, Decreased UE Strength Discharge Recommendations Plan/Recommendations: Continue POC Treatment Plan/Plan of Care Patient would benefit from OT for education, treatment and training to promote independence in ADL's, mobility, safety and/or upper extremity function for ADL's. Plan of Care: ADL Retraining, Functional Mobility, UE Funct Exercise/Act Treatment Duration: Jun 13, 2019 Frequency: 5 times per week Estimated Hrs Per Day: .5 hour per day Agreement: Yes Rehab Potential: Fair Time/GCodes Start Time: 11:44 Stop Time: 11:54 Total Time Billed (hr/min): 10 Billed Treatment Time 1 visit-EX 1 (10 min) JACEK ANGULO Jun 04, 2019 11:54
--- NOTE | 2019-06-04 12:55 | NUR ---
DISCHARGE PLANNING: This RN is covering for SS who is out today. Patient was denied for admission to [facility] due to being OON with [facility] [employer]. Spoke to patient and then niece, Carey, who has now requested that SNF placement be sought in the [place], [place] area. I called two facilities and found 1 in network with patient's insurance. Clinical information has been sent to [facility] for their consideration. Awaiting notification from them. Patient is clinically stable for discharge.
[2019-06-04] MEDS: ENOXAPARIN 40 MG/0.4 ML (LOVENOX) SYR SQ SCH (13:35)
[2019-06-04 16:50] VITALS: BP 139/65
[2019-06-04] MEDS: VANCOMYCIN 1,750 MG/NS 500 ML IVPB IV SCH ×2 (18:33)
[2019-06-05] VITALS: BP 163/74
[2019-06-05] MEDS: ceFAZolin INJECTION 1,000 MG in WATER (STERILE) FOR INJECTION 10 ML IV SCH ×3 (01:19→16:40)
[2019-06-05] MEDS: LACTOBACILLUS ACIDOPHILUS (PROBIOTIC) CAPSULE PO SCH ×3 (06:04→16:40)
[2019-06-05 06:30] LABS: BASOPHILS # (AUTO) 0.1 10^3/uL (0.0-0.1); BASOPHILS % (AUTO) 1 % (0-10); EOSINOPHILS # (AUTO) 0.6 10^3/uL (0.0-0.3); EOSINOPHILS % (AUTO) 7 % (0-10); HEMATOCRIT 40 % (35-52); HEMOGLOBIN 12.7 G/DL (11.5-16.0); LYMPHOCYTES # (AUTO) 1.1 X 10^3 (1.0-4.0); LYMPHOCYTES % (AUTO) 13 % (12-44); MEAN CORPUSCULAR HEMOGLOBIN 28 PG (25-34); MEAN CORPUSCULAR HGB CONC 32 G/DL (32-36); MEAN CORPUSCULAR VOLUME 86 FL (80-99); MONOCYTES # (AUTO) 0.8 X 10^3 (0.0-1.0); MONOCYTES % (AUTO) 9 % (0-12); NEUTROPHILS % (AUTO) 70 % (42-75); PLATELET COUNT 302 10^3/uL (130-400); RED CELL DISTRIBUTION WIDTH 14.4 % (10.0-14.5); WHITE BLOOD COUNT 8.6 10^3/uL (4.3-11.0)
[2019-06-05 06:51] LABS: ALANINE AMINOTRANSFERASE < 6 U/L (0-55); ALBUMIN 3.4 GM/DL (3.2-4.5); ALKALINE PHOSPHATASE 99 U/L (40-136); BILIRUBIN,TOTAL 0.3 MG/DL (0.1-1.0); BUN/CREATININE RATIO 21; CARBON DIOXIDE 23 MMOL/L (21-32); CHLORIDE 101 MMOL/L (98-107); CREATININE SERUM 1.11 MG/DL (0.60-1.30); GFR ESTIMATED 48; GLUCOSE 99 MG/DL (70-105); POTASSIUM 3.3 MMOL/L (3.6-5.0); SODIUM 136 MMOL/L (135-145)
[2019-06-05 08:00] VITALS: BP 171/99
[2019-06-05] MEDS: FUROSEMIDE 40 MG/4 ML INJ (LASIX) IV SCH ×2 (08:51→20:09)
[2019-06-05] MEDS: amLODIPine 5 MG (NORVASC) TAB PO SCH (08:51)
[2019-06-05] MEDS: A & D OINT 113 GM TUBE TOP SCH (08:52)
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
[2019-06-05] MEDS: ENOXAPARIN 40 MG/0.4 ML (LOVENOX) SYR SQ SCH (12:50)
--- NOTE | 2019-06-05 13:51 | NUR ---
CM/SS referral sent to [facility]. Facility will accept the patient, awaiting for insurance to authorize.
--- NOTE | 2019-06-05 14:02 | NUR ---
This RN called to update the niece on the progress of finding an accepting facility. I told here that I have not had a return call from the SNF in [place] and explained that the SW had sent a referral to [facility] where he has bee accepted by facility and now we are awaiting Insurance authorization.
--- NOTE | 2019-06-05 15:19 | Occupational Ther Daily Note ---
OT Current Status-Daily Note Subjective Pt alert, lying in bed. Pt agrees to therapy. No c/o pain. Mental Status/Objective Patient Orientation: Person Therapy Code Descriptions/Definitions Functional [place] Measure: 0=Not Assessed/NA 4=Minimal Assistance 1=Total Assistance 5=Supervision or Setup 2=Maximal Assistance 6=Modified [place] 3=Moderate Assistance 7=Complete [place] Attachments: IV Other Treatment Pt tolerated UE strengthening using light resistance theraband exercises. Pt requires skilled instruction for technique and education. Pt tolerated well. After therapy, pt lying in bed with call light/phone in reach. All needs met in room. OT Short Term Goals Short Term Goals Time Frame: Jun 06, 2019 Eating(FIM): 6 Grooming(FIM): 5 Bathing(FIM): 4 Upper Body Dressing(FIM): 5 Lower Body Dressing(FIM): 4 Toileting(FIM): 4 Transfers (B,C,W/C) (FIM): 5 Toilet/Commode Transfer(FIM): 5 Shower Transfer(FIM): 4 Additional Short Term Goals: 1-Demonstrate ADL Tasks, 2-Verbalize Understanding, 3-ImproveStrength/[place] 1=Demonstrate adherence to instructed precautions during ADL tasks. 2=Patient will verbalize/demonstrate understanding of assistive devices/modifications for ADL. 3=Patient will improve strength/tolerance for activity to enable patient to perform ADL's. OT Half-Way Goals Rug Underlay Machine Operator Goals Time Frame: Jun 13, 2019 Eating (FIM): 6 Grooming(FIM): 5 Bathing(FIM): 5 Upper Body Dressing(FIM): 5 Lower Body Dressing(FIM): 5 Toileting(FIM): 5 Transfers (B,C,W/C) (FIM): 5 Toilet/Commode Transfer(FIM): 5 Shower Transfer(FIM): 5 Additional Goals: 1-Demonstrate ADL Tasks, 2-Verbalize Understanding, 3- ImproveStrength/Y[place] 1=Demonstrate adherence to instructed precautions during ADL tasks. 2=Patient will verbalize/demonstrate understanding of assistive devices/modifications for ADL. 3=Patient will improve strength/tolerance for activity to enable patient to perform ADL's. OT Education/Plan Problem List/Assessment Assessment: Decreased Activ Tolerance, Decreased Safety Aware, Decreased UE Strength Discharge Recommendations Plan/Recommendations: Continue POC Treatment Plan/Plan of Care Patient would benefit from OT for education, treatment and training to promote independence in ADL's, mobility, safety and/or upper extremity function for ADL's. Plan of Care: ADL Retraining, Functional Mobility, UE Funct Exercise/Act Treatment Duration: Jun 13, 2019 Frequency: 5 times per week Estimated Hrs Per Day: .5 hour per day Agreement: Yes Rehab Potential: Fair Time/GCodes Start Time: 15:05 Stop Time: 15:15 Total Time Billed (hr/min): 10 Billed Treatment Time 1 visit-EX 1 (10 min) JACEK ANGULO Jun 05, 2019 15:19
--- NOTE | 2019-06-05 15:59 | Physical Therapy Daily Note ---
PT Daily Note-Current Subjective Pt. in bed slumped to side states he would like to get up for walking and sitting up in recliner Pain Location: No Pain Reported Appearance left knee with very limited to no flexion restricting pts. bed mobility as well as sit to stand mobility. Mental Status Patient Orientation: Person, Place, Time, Situation Transfers Therapy Code Descriptions/Definitions Functional [place] Measure: 0=Not Assessed/NA 4=Minimal Assistance 1=Total Assistance 5=Supervision or Setup 2=Maximal Assistance 6=Modified [place] 3=Moderate Assistance 7=Complete [place] Therapy Quality Codes: 6 Independent with activity with or without an assistive device 5 Patient requires set up or clean up by helper. Patient completes activity by themselves 4 Supervision or touching assist (CGA). [place] provide cues , steadying assist 3 The helper provides less than half the effort to complete the activity 2 The helper provides more than half the effort to complete the activity 1 Dependent. The helper does all the effort to complete an activity 7 Patient refused to complete or attempt activity 9 The patient did not perform the activity before the current illness or injury 88 Not attempted due to Medical conditions or safety concerns sup to sit mod assist, sit to stand also mod assist, very retropulsive initially requiring assist to shift wt forward and instruction for FWW management Gait Training Gait Assistive Device: FWW 125f, 70 ft slow, leg length discrepency and left knee near fixed in extension limits gait stability, heavy wt on FWW, Exercises Supine Ex: Ankle pumps, Quad Set, Rolling, Hip abd/add Supine Reps: 10 Assessment Current Status: Good Progress improved gait this date, TRFs very challenging PT Short Term Goals Short Term Goals Transfers (B,C,W/C) (FIM): 5 PT Sessions Clerk Goals Sessions Clerk Goals PT Half-Way Goals Time Frame: Jun 06, 2019 Transfers (B,C,W/C) (FIM): 5 Gait (FIM): 5 Gait distance (FIM): 3=150 ft Distance: 150 ft Gait Level of Assist: 5 Gait Assistive Device: FWW PT Plan Treatment/Plan Treatment Plan: Continue Plan of Care Treatment Plan: Bed Mobility, Concurrent Therapy, Education, Functional Activity Yumiko, Functional Strength, Gait, Safety, Therapeutic Exercise, Transfers Treatment Duration: Jun 06, 2019 Frequency: 6 times per week Estimated Hrs Per Day: .5 hour per day Patient and/or Family Agrees t: Yes Safety Risks/Education Patient Education: Transfer Techniques, Correct Positioning, Disease Process, Safety Issues Teaching Recipient: Patient Teaching Methods: Demonstration, Discussion Response to Teaching: Verbalize Understanding, Return Demonstration, Reinforcement Needed Time/GCodes Time In: 1510 Time Out: 1535 Total Billed Treatment Time: 25 Total Billed Treatment 1,FA15m,gt10m G Codes Necessary: LISA Perales LETTER SORTING MACHINE OPERATOR Jun 05, 2019 15:58
[2019-06-05 16:15] VITALS: BP 129/66
[2019-06-05] MEDS ORDERED: TROUGH ORDER-PHARMACY XX NR (18:00)
[2019-06-05] MEDS: VANCOMYCIN 1,750 MG/NS 500 ML IVPB IV SCH ×2 (18:43)
[2019-06-06] VITALS: BP 159/75
[2019-06-06] MEDS: ceFAZolin INJECTION 1,000 MG in WATER (STERILE) FOR INJECTION 10 ML IV SCH ×3 (00:17→16:01)
[2019-06-06] MEDS: LACTOBACILLUS ACIDOPHILUS (PROBIOTIC) CAPSULE PO SCH ×3 (06:24→16:01)
[2019-06-06 08:00] VITALS: BP 133/59
[2019-06-06] MEDS: FUROSEMIDE 40 MG/4 ML INJ (LASIX) IV SCH ×2 (09:04→19:54)
[2019-06-06] MEDS: A & D OINT 113 GM TUBE TOP SCH (09:04)
[2019-06-06] MEDS: amLODIPine 5 MG (NORVASC) TAB PO SCH (09:04)
[2019-06-06] MEDS: ENOXAPARIN 40 MG/0.4 ML (LOVENOX) SYR SQ SCH (12:08)
--- NOTE | 2019-06-06 12:40 | Physical Therapy Daily Note ---
PT Daily Note-Current Subjective Pt agreed to treatment, but has to stay in his room due to isolation. Mental Status Patient Orientation: Person, Place, Time, Situation Transfers Therapy Code Descriptions/Definitions Functional [place] Measure: 0=Not Assessed/NA 4=Minimal Assistance 1=Total Assistance 5=Supervision or Setup 2=Maximal Assistance 6=Modified [place] 3=Moderate Assistance 7=Complete [place] Therapy Quality Codes: 6 Independent with activity with or without an assistive device 5 Patient requires set up or clean up by helper. Patient completes activity by themselves 4 Supervision or touching assist (CGA). [place] provide cues , steadying assist 3 The helper provides less than half the effort to complete the activity 2 The helper provides more than half the effort to complete the activity 1 Dependent. The helper does all the effort to complete an activity 7 Patient refused to complete or attempt activity 9 The patient did not perform the activity before the current illness or injury 88 Not attempted due to Medical conditions or safety concerns Transfers (B, C, W/C) (FIM): 3 Scootin Rollin Supine to/from Sit: 3 Sit to/from Stand: 4 Bed to/from Chair: 4 Gait Training Gait (FIM): 5 Distance (FIM): 3=150 ft Distance: 150ft Gait Level of Assist: 5 Gait Persons Needed: 1 Gait Assistive Device: FWW Exercises Supine Ex: LE Protocol Supine Reps: 20 Assessment Pt was able to ambulate safely within his room. Good decision making with turns and transfers. PT Short Term Goals Short Term Goals Transfers (B,C,W/C) (FIM): 5 PT Fdc Goals Fdc Goals PT Fdc Goals Time Frame: Jun 06, 2019 Transfers (B,C,W/C) (FIM): 5 Gait (FIM): 5 Gait distance (FIM): 3=150 ft Distance: 150 ft Gait Level of Assist: 5 Gait Assistive Device: FWW PT Plan Treatment/Plan Treatment Plan: Continue Plan of Care Treatment Plan: Bed Mobility, Concurrent Therapy, Education, Functional Activity Yumiko, Functional Strength, Gait, Safety, Therapeutic Exercise, Transfers Treatment Duration: Jun 06, 2019 Frequency: 6 times per week Estimated Hrs Per Day: .5 hour per day Patient and/or Family Agrees t: Yes Time/GCodes Time In: 0956 Time Out: 1020 Total Billed Treatment Time: 24 Total Billed Treatment 1, gt x2, 24 JONY GARCIA PT Jun 06, 2019 12:39
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
[2019-06-06 16:20] VITALS: BP 146/72
[2019-06-06] MEDS: VANCOMYCIN 1,750 MG/NS 500 ML IVPB IV SCH ×2 (18:01)
[2019-06-07 00:40] VITALS: BP 144/68
[2019-06-07] MEDS: ceFAZolin INJECTION 1,000 MG in WATER (STERILE) FOR INJECTION 10 ML IV SCH ×3 (00:54→16:47)
[2019-06-07] MEDS: LACTOBACILLUS ACIDOPHILUS (PROBIOTIC) CAPSULE PO SCH ×3 (06:34→16:47)
[2019-06-07 08:00] VITALS: BP 143/63
[2019-06-07] MEDS: A & D OINT 113 GM TUBE TOP SCH (09:52)
[2019-06-07] MEDS: FUROSEMIDE 40 MG/4 ML INJ (LASIX) IV SCH ×2 (09:52→20:53)
[2019-06-07] MEDS: amLODIPine 5 MG (NORVASC) TAB PO SCH (09:52)
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
[2019-06-07] MEDS: ENOXAPARIN 40 MG/0.4 ML (LOVENOX) SYR SQ SCH (13:43)
[2019-06-07 16:25] VITALS: BP 154/74
[2019-06-07] MEDS: VANCOMYCIN 1,750 MG/NS 500 ML IVPB IV SCH ×2 (18:14)
[2019-06-07] MEDS: ACETAMINOPHEN 325 MG TABLET PO PRN (18:14)
--- NOTE | 2019-06-07 18:15 | NUR ---
TYLENOL 650MG PO FOR HEADACHE.
[2019-06-08] MEDS: ceFAZolin INJECTION 1,000 MG in WATER (STERILE) FOR INJECTION 10 ML IV SCH ×2 (00:30→09:39)
[2019-06-08 00:51] VITALS: BP 145/73
[2019-06-08] MEDS: LACTOBACILLUS ACIDOPHILUS (PROBIOTIC) CAPSULE PO SCH (06:36)
[2019-06-08 08:00] VITALS: BP 159/72
[2019-06-08] MEDS: FUROSEMIDE 40 MG/4 ML INJ (LASIX) IV SCH (09:40)
[2019-06-08] MEDS: amLODIPine 5 MG (NORVASC) TAB PO SCH (09:40)
[2019-06-08] MEDS: A & D OINT 113 GM TUBE TOP SCH (09:41)
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
--- NOTE | 2019-06-08 10:25 | Physical Therapy Daily Note ---
PT Daily Note-Current Subjective Patient reluctantly agrees to PT. Mental Status Patient Orientation: Person, Time, Situation Transfers Therapy Code Descriptions/Definitions Functional Preemption Measure: 0=Not Assessed/NA 4=Minimal Assistance 1=Total Assistance 5=Supervision or Setup 2=Maximal Assistance 6=Modified Preemption 3=Moderate Assistance 7=Complete Preemption Therapy Quality Codes: 6 Independent with activity with or without an assistive device 5 Patient requires set up or clean up by helper. Patient completes activity by themselves 4 Supervision or touching assist (CGA). [place] provide cues , steadying assist 3 The helper provides less than half the effort to complete the activity 2 The helper provides more than half the effort to complete the activity 1 Dependent. The helper does all the effort to complete an activity 7 Patient refused to complete or attempt activity 9 The patient did not perform the activity before the current illness or injury 88 Not attempted due to Medical conditions or safety concerns Transfers (B, C, W/C) (FIM): 5 Scootin Supine to/from Sit: 5 Sit to/from Stand: 5 Bed to/from Chair: 5 bed mobility with HOB elevated Gait Training Gait (FIM): 5 Distance (FIM): 3=150 ft Distance: 175' Gait Level of Assist: 5 Gait Assistive Device: FWW extended UE's with FWW use/shuffle gait sequence with shoes on Exercises Supine Ex: Ankle pumps, Quad Set, Heel Slides, Straight leg raise Supine Reps: 12 Seated Therapy Exercises: Ankle pumps, Long arc quads Seated Reps: 12 Assessment Patient tolerated treatment well and is up in recliner with needs met . PT Short Term Goals Short Term Goals Transfers (B,C,W/C) (FIM): 5 PT Half-Way Goals Half-Way Goals PT Half-Way Goals Time Frame: Jun 06, 2019 Transfers (B,C,W/C) (FIM): 5 Gait (FIM): 5 Gait distance (FIM): 3=150 ft Distance: 150 ft Gait Level of Assist: 5 Gait Assistive Device: FWW PT Plan Treatment/Plan Treatment Plan: Continue Plan of Care Treatment Plan: Bed Mobility, Concurrent Therapy, Education, Functional Activity Yumiko, Functional Strength, Gait, Safety, Therapeutic Exercise, Transfers Treatment Duration: Jun 06, 2019 Frequency: 6 times per week Estimated Hrs Per Day: .5 hour per day Patient and/or Family Agrees t: Yes Time/GCodes Time In: 915 Time Out: 940 Total Billed Treatment Time: 25 Total Billed Treatment 1 visit GT 13 min EX 12 min GRACIELA WOODALL PT Jun 08, 2019 10:25
--- NOTE | 2019-06-08 10:27 | NUR ---
CM/SS patient has been accepted and insurance approved SNF [facility]. Patient will dc this day to there, they will transport at 11:30. CARE assessment completed with the patient, faxed to facility and [facility], copy retained on chart. Carey (niece) was updated.
--- NOTE | 2019-06-08 10:39 | NUR ---
REPORT TO MIGUEL AT [facility].
--- NOTE | 2019-06-08 11:46 | NUR ---
TO [facility] PER WC WITH NH STAFF.
--- NOTE | 2019-06-08 12:43 | NUR ---
MICHELLE IN WOUND CARE CALLED TO MAKE F/U APPT. INFORMED THAT PT IS AT [facility] AND MICHELLE WILL CALL THEM FOR F/U APPT TIME.
--- NOTE | 2019-06-17 08:14 | Physician Query Clarification ---
PQ-CHF Specificity Admission Date: May 29, 2019 at 19:00 Discharge Date: Jun 08, 2019 at 11:47 The medical record reflects the following clinical scenario: History/Risk Factors: HTN w/ hypertensive urgency, venous insufficinecy, Cellulitis RLE, ulcer rt calf Clinical Findings: BNP 774.1 Treatment: 20 mg IV Lasix Question: Can you further specify the acuity &/or type of CHF per the clinical indicators above? Please document a response in the Progress Notes or Discharge Summary. 1. Acuity: Acute, Chronic or Acute on Chronic 2. Type: Systolic, Diastolic or Systolic & Diastolic 3. Unspecified: CHF cannot be further specified regarding type or acuity 4. Other, with explanation of clinical findings 5. Clinically undetermined, no explanation for clinical findings PHYSICIAN RESPONSE Acuity: Chronic Type: Diastolic Please remember a lack of response to the above will prompt a phone page by CDI/Coding staff. In responding to this query, please exercise your independent professional judgment. The purpose of this communication is to more accurately reflect the complexity of your patients condition. The fact that a question is asked does not imply that any particular answer is desired or expected. Thank you for your timely response to this clarification. Requestors name: Tiffany THIS PHYSICIAN QUERY FORM IS A PERMANENT PART OF THE MEDICAL RECORD TIFFANY MARTINEZ Jun 17, 2019 08:14 NAOMIE YOUSSEF MD Jun 22, 2019 16:39
== END 2019-06-08 11:47 | DRG 603 ==
LOC: EDSEX → ER FS 15:42 → 4TH 19:00
PROVIDERS: ADMIT Family Medicine; ATTEND Family Medicine
DX: L03.115 Cellulitis of right lower limb (principal); R32 Unspecified urinary incontinence; I11.0 Hypertensive heart disease with heart failure; I50.32 Chronic diastolic (congestive) heart failure; I16.0 Hypertensive urgency; I87.2 Venous insufficiency (chronic) (peripheral); R62.7 Adult failure to thrive; Z59.1 Inadequate housing; L97.219 Non-pressure chronic ulcer of right calf with unspecified severity; L89.301 Pressure ulcer of unspecified buttock, stage 1
CPT/HCPCS: 36415; 71045; 80048; 80053; 80202; 81000; 82550; 82962; 83605; 83880; 84443; 84484; 85025; 93005; 93306; 93923; 93970

== ENCOUNTER → 2019-06-16 | Outpatient (CLI) | payer OTHER ==
[~2019-06-16] MED LIST: AMLO5TAB9 PO; AMOX-358 PO; FURO-125 PO; LACT1CAP7 PO; POTA10TA36 PO
== END ==
LOC: WOUNDCARE 09:14
PROVIDERS: ATTEND Nurse Practitioner
DX: L97.211 Non-pressure chronic ulcer of right calf limited to breakdown of skin (principal); I87.331 Chronic venous hypertension (idiopathic) with ulcer and inflammation of right lower extremity; I89.0 Lymphedema, not elsewhere classified; E66.01 Morbid (severe) obesity due to excess calories; I96 Gangrene, not elsewhere classified
CPT/HCPCS: 99213

== ENCOUNTER → 2019-06-23 | Outpatient (CLI) | payer OTHER | LOC: WOUNDCARE 08:56 | PROVIDERS: ATTEND Nurse Practitioner | DX: I87.331 Chronic venous hypertension (idiopathic) with ulcer and inflammation of right lower extremity (principal); L97.211 Non-pressure chronic ulcer of right calf limited to breakdown of skin; I89.0 Lymphedema, not elsewhere classified; E66.01 Morbid (severe) obesity due to excess calories | CPT/HCPCS: 99212 ==